=== PATIENT | female | born 2000 | race Two or more races ===

== ENCOUNTER 2023-11-18 12:41 | Emergency (ER) | payer OTHER ==
[~2023-11-18] VITALS: Ht 160 cm; Wt 55.3 kg
[2023-11-18] MEDS ORDERED: PEPCID AC20 MG PO (13:58)
[2023-11-18] MEDS ORDERED: MONTELUKAST SODI4 M1 PO (13:58)
[2023-11-18] MEDS ORDERED: EPIPEN0.3 MG/0.1 IJ (13:58)
[2023-11-18] MEDS ORDERED: ZOVIRAX800 MG PO (13:58)
[2023-11-18] MEDS ORDERED: BACTRIM DS TAB1 EACH PO (13:58)
== END 2023-11-18 14:45 | disposition home or self-care (01) ==
LOC: ER 12:43
DX: T78.49XA Other allergy, initial encounter (principal); X58.XXXA Exposure to other specified factors, initial encounter